=== PATIENT | male | born 1970 | race Caucasian/White ===

== ENCOUNTER 2016-10-20 08:30 | Emergency (ER) | payer OTHER ==
[~2016-10-20 08:30] MED LIST: FLEXERIL10 M1 PO; FLEXERIL10 MG PO; IBUPROFEN800 MG PO; LORTAB 7.5-5001 TAB PO; NO MEDICATIONS; ORUDIS75 M1 PO; PEN-VEE K PO; ULTRAM PO; VOLTAREN75 MG PO
== END 2016-10-20 11:13 | disposition home or self-care (01) ==
LOC: SED 08:30
DX: S01.01XA Laceration without foreign body of scalp, initial encounter (principal); S60.811A Abrasion of right wrist, initial encounter; J45.909 Unspecified asthma, uncomplicated; F31.9 Bipolar disorder, unspecified; F17.210 Nicotine dependence, cigarettes, uncomplicated; W22.8XXA Striking against or struck by other objects, initial encounter; Y92.69 Other specified industrial and construction area as the place of occurrence of the external cause; Y99.0 Civilian activity done for income or pay
CPT/HCPCS: 12002; 99283

== ENCOUNTER 2016-10-31 09:24 | Emergency (ER) | payer OTHER | END 2016-10-31 09:53 | disposition home or self-care (01) | LOC: SED 09:24 | DX: Z48.02 Encounter for removal of sutures (principal); F31.9 Bipolar disorder, unspecified; J45.909 Unspecified asthma, uncomplicated; F17.200 Nicotine dependence, unspecified, uncomplicated | CPT/HCPCS: 99281 ==